=== PATIENT | female | born 2000 | race Caucasian/White ===

== ENCOUNTER 2021-03-01 21:07 | Emergency (ER) | payer BC, SELFPAY ==
[2021-03-01 21:11] VITALS: BP 129/76; PULSE 93; RESP 16; TEMP 35.9; O2SAT 100; BMI 24.2
--- NOTE | 2021-03-01 21:25 | EX.ED.DYSGE1 ---
HPI History of Present Illness Chief Complaint: Sore Throat Informant: patient Narrative Narrative: Patient is a 20-year-old female presenting with 1 day of sore throat. She states it started this morning but became worse a couple hours prior to arrival. She states it got so bad that she felt like she had to cough and gag whenever she tried to swallow anything. She denies any fever. Does feel like her throat is swollen. Has remote history of strep throat. Denies any sick contacts. Denies any cough. No other complaints at this time. PFSH PFSH Home Medications drospirenone-ethinyl estradiol 1 tab PO DAILY 03/01/21 [History Last Taken Unknown] escitalopram oxalate 20 mg PO DAILY 03/01/21 [History Last Taken Unknown] valacyclovir 500 mg PO DAILY 03/01/21 [History Last Taken Unknown] Allergy/AdvReac Type Severity Reaction Status Date / Time No Known Allergies Allergy Verified 03/01/21 21:09 Social History Smoking Status: Never smoker ROS ROS ED Constitutional Constitutional ED: Denies chills or fever(s) Eyes Eyes: Denies change in vision ENT ENT ED: Reports sore throat; Denies ear pain or rhinorrhea Cardiovascular Cardiovascular: Denies chest pain or palpitations Respiratory/Chest Respiratory/Chest: Denies dyspnea Gastrointestinal Gastrointestinal: Denies abdominal pain or vomiting Musculoskeletal Musculoskeletal: Denies arthralgias or myalgias Integumentary Denies rash Neurologic Neurologic: Denies headache(s) or weakness EXAM Physical Exam Const Vital Signs: 03/01/21 21:11 Temperature 96.6 F L Temperature Source Temporal Pulse Rate 93 Respiratory Rate 16 Blood Pressure 129/76 H Blood Pressure Mean 93 Pulse Ox 100 Positive well nourished and well developed General Appearance ED: well developed HEENT Reports TM's clear and moist mucous membranes HEENT Narrative: Mild erythema of the oropharynx. Uvula is midline. No exudate of the tonsils appreciated. Normal hard palate. Normal phonation. No trismus. Tympanic Membrane ED: Yes TM's clear Eyes PERRL and EOMs intact bilaterally Neck supple Neck Narrative: Tender lymphadenopathy superior anterior cervical chain, left worse than right Chest Wall inspection of chest normal Resp normal respiratory effort and clear to auscultation bilaterally Cardio regular rate, regular rhythm and no murmurs GI normal to inspection, nondistended, normoactive bowel sounds Extremity normal to inspection General Extremety ED: Negative for edema General Extremity: Negative for edema Neuro oriented x3 Sensorium / Orientation: alert Motor Exam: Negative for general weakness Psych mental status grossly normal Skin no rashes or lesions noted MDM MDM MDM Narrative Medical decision making narrative: Patient evaluated for 1 day of sore throat. She appears nontoxic in no acute distress. Vital signs are normal. Strep swab is obtained. She is given a dose of Decadron and Motrin in the ER. We will treat his pharyngitis. We will only treat with antibiotics if strep throat comes back positive or ultimately culture comes back positive. Patient is counseled on this. She is protecting her airway and I do not suspect any Mary's angina, peritonsillar abscess or more serious diagnosis at this time. As she is only had 1 day of symptoms it is too soon to test for mononucleosis because of risk of false positive. Discharge Plan Triage Chief Complaint: Sore Throat ED Provider: Jenny Bolaños Dx/Rx/DC Orders Clinical Impression: Pharyngitis Instructions: ED Pharyngitis, Report Pending Prescriptions: No Action valacyclovir 500 mg Tablet 500 mg PO DAILY RF: 0 escitalopram oxalate 20 mg Tablet 20 mg PO DAILY RF: 0 drospirenone-ethinyl estradiol 3-0.02 mg Tablet 1 tab PO DAILY RF: 0 Primary Care Provider: Care Physician,No Primary Referrals: Jp Vazquez MD [STAFF PHYSICIAN] - [facility] Doctor,Out of [NON-STAFF] - Disposition Disposition: Home, Self Care
[2021-03-01] MEDS: dexAMETHasone 10 MG/ML Vial PO.IVFORM (21:35)
[2021-03-01] MEDS: Ibuprofen 600 MG Tablet PO (21:35)
== END 2021-03-01 23:08 | disposition home or self-care (01) ==
PROVIDERS: Emergency Provider Emergency Medicine
DX: J02.9 Acute pharyngitis, unspecified (principal); Z79.899 Other long term (current) drug therapy
CPT/HCPCS: 87880; 99283